=== PATIENT | male | born 1940 | race Caucasian/White ===

== ENCOUNTER 2023-05-08 10:35 | Emergency (ER) | payer MEDICARE ==
[2023-05-08 11:47] LABS: HEMATOCRIT 31.1 % (38.4-49.7); HEMOGLOBIN 10.2 g/dL (12.9-16.9); MEAN CORPUSCULAR HEMOGLOBIN 33.4 pg (31.6-35.5); MEAN CORPUSCULAR HGB CONC 32.8 g/dL (31.6-35.5); PLATELET COUNT,PLT 308 K/uL (130-375); RED BLOOD CELL COUNT 3.05 M/uL (4.14-5.76); WHITE BLOOD CELL COUNT,WBC 9.1 K/uL (3.2-11.0)
[2023-05-08 12:03] LABS: C-REACTIVE PROTEIN 10.43 mg/dL (0.0-0.3); CALCIUM 8.8 mg/dL (8.5-10.1); CREATININE 1.4 mg/dL (0.8-1.3); EST CRCL DRUG DOSING (CG) 40.56 mL/min
[2023-05-08 12:07] LABS: BAND ABSOLUTE MAN 0.09 K/uL; BAND PERCENT MAN 1 % (5-11); EOSINOPHILS ABSOLUTE MAN 0.55 K/uL (0.00-0.40); EOSINOPHILS PERCENT MAN 6 % (2-4); LYMPHOCYTES ABSOLUTE MAN 1.46 K/uL (0.8-3.3); LYMPHOCYTES PERCENT MAN 16 % (24-44); MONOCYTES ABSOLUTE MAN 0.36 K/uL (0.20-0.90); MONOCYTES PERCENT MAN 4 % (2-6); NEUTROPHILS ABSOLUTE MAN 6.64 K/uL (1.0-7.6); SEG NEUTROPHILS PERCENT MAN 73 % (36-66)
== END 2023-05-08 14:32 | disposition home or self-care (01) ==
LOC: JP.ED 10:35
DX: R53.1 Weakness (principal); Z87.891 Personal history of nicotine dependence
CPT/HCPCS: 36415; 71046; 71046-26; 80048; 84484; 85025; 86140; 93005; 99285

== ENCOUNTER 2025-03-05 13:17 | Emergency (ER) | payer MEDICARE ==
[2025-03-05 14:09] LABS: HEMATOCRIT 17.5 % (38.4-49.7); MEAN CORPUSCULAR HEMOGLOBIN 36.9 pg (31.6-35.5); MEAN CORPUSCULAR HGB CONC 33.1 g/dL (31.6-35.5); MEAN CORPUSCULAR VOLUME 111.5 fL (81.4-99.0); RED BLOOD CELL COUNT 1.57 M/uL (4.14-5.76); WHITE BLOOD CELL COUNT,WBC 26.9 K/uL (3.2-11.0)
[2025-03-05 14:12] LABS: HEMOGLOBIN 5.8 g/dL (12.9-16.9); PLATELET COUNT,PLT 12 K/uL (130-375)
[2025-03-05 14:23] LABS: LACTIC ACID 1.5 mmol/L (0.4-2.0)
[2025-03-05 14:29] LABS: A/G RATIO 0.9 (1.2-2.2); ALANINE AMINOTRANSFERASE,ALT 17 U/L (12-78); ALBUMIN 3.3 g/dL (3.4-5.0); ALKALINE PHOSPHATASE 78 U/L (46-116); ANION GAP 11.4 mmol/L (5.0-14.0); ASPARTATE AMNIOTRANSFERASE,AST 14 U/L (15-37); BILIRUBIN TOTAL 0.4 mg/dL (0.2-1.0); BLOOD UREA NITROGEN,BUN 28 mg/dL (7-18); C-REACTIVE PROTEIN 3.11 mg/dL (<0.50); CALCIUM 8.5 mg/dL (8.5-10.1); CARBON DIOXIDE,CO2 23 mmol/L (21-32); CHLORIDE,CL 108 mmol/L (100-108); ESTIMATED GFR 32 mL/min (>60); GLUCOSE RANDOM 126 mg/dL (74-106); POTASSIUM,K 4.3 mmol/L (3.6-5.2); PROTEIN TOTAL,TP 6.8 g/dL (6.4-8.2); SODIUM,NA 142 mmol/L (140-148)
[2025-03-05 14:42] LABS: LYME AB IgG Negative (Negative)
[2025-03-05 14:48] LABS: LYME AB IgM Negative (Negative)
[2025-03-05 14:50] LABS: BAND ABSOLUTE MAN 0.27 K/uL; BAND PERCENT MAN 1 % (5-11); BLAST ABSOLUTE MAN 15.06 K/uL (0-0); BLASTS PERCENT MAN 56 %; LYMPHOCYTES ABSOLUTE MAN 6.19 K/uL (0.8-3.3); LYMPHOCYTES PERCENT MAN 23 % (24-44); METAMYELOCYTE ABSOLUTE MAN 0.54 K/uL; METAMYELOCYTE PERCENT MAN 2 %; MONOCYTES ABSOLUTE MAN 0.54 K/uL (0.20-0.90); MONOCYTES PERCENT MAN 2 % (2-6); MYELOCYTE ABSOLUTE MAN 0.54; MYELOCYTE PERCENT MAN 2 %; NEUTROPHILS ABSOLUTE MAN 2.42 K/uL (1.0-7.6); PROMYELOCYTE ABSOLUTE MAN 1.35 K/uL; PROMYELOCYTE PERCENT MAN 5 %; SEG NEUTROPHILS PERCENT MAN 9 % (36-66)
[2025-03-05 14:52] LABS: ANISOCYTOSIS MARKED
[2025-03-05 14:53] LABS: POIKILOCYTOSIS FEW
[2025-03-05 14:54] LABS: HELMET CELLS FEW; SPHEROCYTES FEW
[2025-03-05 14:59] LABS: ATYPICAL LYMPHOCYTES MANY
[2025-03-08 08:48] LABS: ANAPLASMA PHAGOCYTOPHILUM PCR Not Detected; BABESIA MICROTI BY PCR Not Detected; BABESIA SPECIES BY PCR Not Detected; EHRLICHIA CHAFFEENSIS BY PCR Not Detected; EHRLICHIA EWINGII/CANIS BY PCR Not Detected; EHRLICHIA MURIS-LIKE BY PCR Not Detected
== END 2025-03-05 19:40 ==
LOC: JP.ED 13:17
DX: C95.00 Acute leukemia of unspecified cell type not having achieved remission (principal); Z87.891 Personal history of nicotine dependence; Z79.899 Other long term (current) drug therapy
CPT/HCPCS: 36415; 36430; 80053; 83605; 85025; 86140; 86618; 86850; 86900; 86901; 86920; 86922; 87468; 87469; 87484; 87798; 88104; 99284; P9016